=== PATIENT | female | born 1995 | race Caucasian/White ===

== ENCOUNTER → 2017-09-15 | Outpatient (CLI) | payer BC ==
--- NOTE | 2017-09-15 17:56 | Diagnostic Imaging Report ---
PROCEDURE:KNEE THREE VIEWS BILATERAL COMPARISON:None. INDICATIONS:BILATERAL KNEE PAIN FINDINGS: There are no fractures, dislocations, lytic or blastic lesions. The bones are well-mineralized. The soft-tissues are unremarkable.Small to moderate suprapatellar joint effusion in the left knee with thickening of the quadriceps tendon. CONCLUSION: 1. Small to moderate suprapatellar joint effusion in the left knee with thickening of the quadriceps tendon. Correlate for possible recent injury. 2. Normal right knee. Dictated by: Guevara Huertas M.D. on 09/15/2017 at 17:58 Electronically approved by: Guevara Huertas M.D. on 09/15/2017 at 17:58
== END ==
LOC: RAD 16:47
PROVIDERS: ATTEND Student in an Organized Health Care Education/Training Program
DX: R76.8 Other specified abnormal immunological findings in serum (principal)

== ENCOUNTER → 2017-12-10 | Outpatient (CLI) | payer OTHER ==
--- NOTE | 2017-12-10 12:49 | Diagnostic Imaging Report ---
FOOT LEFT COMPLETE HISTORY: Trauma, left foot. 1 week ago. COMPARISON: None available. FINDINGS: Bones: No acute displaced fracture. Osseous alignment is within normal limits. Joints: The joint spaces are well-maintained. Soft tissues: The soft tissues appear unremarkable. IMPRESSION: No acute radiographic abnormality. Signed by: DR. Federico Lopez MD on 12/10/2017 12:45 PM
== END ==
LOC: RAD 11:01
PROVIDERS: ATTEND Pediatrics
DX: M79.672 Pain in left foot (principal); S99.922A Unspecified injury of left foot, initial encounter

== ENCOUNTER → 2018-01-17 | Outpatient (CLI) | payer OTHER ==
--- NOTE | 2018-01-18 08:39 | Diagnostic Imaging Report ---
MRI of the left forefoot without contrast. History: Foot pain. Trauma. Decreased range of motion. Technique: Multiplanar multisequence MRI of the left foot without contrast Comparison: 12/10/2017 Findings: There is a mild amount of superficial soft tissue edema about the foot most pronounced dorsally at the level of the third through fifth distal metatarsals and toes. No well-formed drainable fluid collection is seen. There is no acute fracture, subluxation or evidence of avascular necrosis. Minimal scattered degenerative changes are seen. No focal bone marrow edema or cortical destruction is seen. No ligamentous or tendon tear is seen. The visualized neurovascular bundles are intact. Impression: Mild amount of superficial soft tissue edema about the foot most pronounced dorsally at the level of the third through fifth distal metatarsals and toes. This is likely due to a superficial contusion. Signed by: Dr. Jose Manuel Gibson M.D. on 01/18/2018 8:35 AM
== END ==
LOC: MRI 16:12
PROVIDERS: ATTEND Family Medicine
DX: S96.912A Strain of unspecified muscle and tendon at ankle and foot level, left foot, initial encounter (principal); S90.32XA Contusion of left foot, initial encounter; S90.112A Contusion of left great toe without damage to nail, initial encounter

== ENCOUNTER 2020-06-19 15:38 | Emergency (ER) | payer BC ==
[~2020-06-19] VITALS: Ht 162.6 cm; Wt 49.0 kg
== END 2020-06-19 19:40 | disposition home or self-care (01) ==
LOC: FSED 16:30
DX: M25.531 Pain in right wrist (principal); S60.211A Contusion of right wrist, initial encounter; F32.9 Major depressive disorder, single episode, unspecified
CPT/HCPCS: 99283